=== PATIENT | female | born 1975 | race Caucasian/White ===

== ENCOUNTER → 2018-05-19 07:48 | Outpatient (CLI) | payer OTHER ==
[2013-02-02 12:01] VITALS: BMI 33.5
[~2018-05-19 07:48] MED LIST: CALAN SR120 MG PO; COZAAR50 MG PO; ELAVIL25 MG PO; ESTRACE1 MG PO; HYDROCHLOROTHIA25 MG PO; NORCO 10/325 TA1 TA1 PO; PRILOSEC20 MG PO; ZOCOR10 MG PO
== END | disposition home or self-care (01) ==
LOC: D.MRI 07:48
DX: M25.512 Pain in left shoulder (principal)